=== PATIENT | male | born 1985 | race American Indian/Alaskan Native ===

== ENCOUNTER 2017-01-15 13:07 | Emergency (ER) | payer SELFPAY ==
[2017-01-15] MEDS ORDERED: MOTRIN PO ONE (14:24)
--- NOTE | 2017-01-15 14:35 | Emergency Department Report ---
- General Chief Complaint: Upper Respiratory Infection Stated Complaint: NAUSEA/VOMITING Time Seen by Provider: 01/15/17 14:28 Source: patient Mode of arrival: Ambulatory Limitations: No Limitations - History of Present Illness Initial Comments: 31-year-old male past medical history none presents with complaint of 5-6 days of runny nose sore throat and nonproductive cough and subjective fevers. Patient states that his son had strep earlier last week. Patient is awake alert and oriented 3 states he feels slightly nauseous as he has been coughing which has made him nauseous. Denies any rash denies any earache. States his throat feels somewhat sore. MD Complaint: fever, cough, sore throat Severity: moderate Severity scale (0 -10): 5 Quality: aching Consistency: constant Associated Symptoms: fever, rhinorrhea, cough, nausea - Related Data Previous Rx's Medication Instructions Recorded Last Taken Type Acetaminophen 500 mg PO Q6H PRN #30 tablet 01/15/17 Unknown Rx Bismuth Subsalicylate 10 ml PO QID PRN #1 bottle 01/15/17 Unknown Rx [Pepto-Bismol] Dextromethorphan/Benzocaine 1 each PO Q4H PRN #1 box 01/15/17 Unknown Rx [Cepacol Sorethroat-Cough Helen] Ondansetron [Zofran Odt] 4 mg PO Q8H PRN #12 tab.rapdis 01/15/17 Unknown Rx Allergies Allergy/AdvReac Type Severity Reaction Status Date / Time No Known Allergies Allergy Unverified 01/15/17 14:21 ED Review of Systems ROS: Stated complaint: NAUSEA/VOMITING Other details as noted in HPI Constitutional: fever, malaise. denies: chills Eyes: denies: eye pain, eye discharge, vision change ENT: denies: ear pain, throat pain Respiratory: denies: cough, shortness of breath, wheezing Cardiovascular: denies: chest pain, palpitations Endocrine: no symptoms reported Gastrointestinal: nausea. denies: abdominal pain, diarrhea Genitourinary: denies: urgency, dysuria Musculoskeletal: denies: back pain, joint swelling, arthralgia Skin: denies: rash, lesions Neurological: denies: headache, weakness, paresthesias Psychiatric: denies: anxiety, depression Hematological/Lymphatic: denies: easy bleeding, easy bruising ED Past Medical Hx - Past Medical History Previous Medical History?: No - Surgical History Past Surgical History?: No - Social History Smoking Status: Current Every Day Smoker Substance Use Type: Alcohol - Medications Home Medications: Home Medications Medication Instructions Recorded Confirmed Last Taken Type Acetaminophen 500 mg PO Q6H PRN #30 tablet 01/15/17 Unknown Rx Bismuth Subsalicylate 10 ml PO QID PRN #1 bottle 01/15/17 Unknown Rx [Pepto-Bismol] Dextromethorphan/Benzocaine 1 each PO Q4H PRN #1 box 01/15/17 Unknown Rx [Cepacol Sorethroat-Cough Helen] Ondansetron [Zofran Odt] 4 mg PO Q8H PRN #12 tab.rapdis 01/15/17 Unknown Rx ED Physical Exam - General Limitations: No Limitations General appearance: alert, in no apparent distress - Head Head exam: Present: atraumatic, normocephalic - Eye Eye exam: Present: normal appearance, PERRL, EOMI - ENT ENT exam: Present: mucous membranes moist - Expanded ENT Exam Expanded Throat exam: Positive: tonsillar erythema (bilateral tonsillar erythema) - Neck Neck exam: Present: normal inspection, full ROM - Respiratory Respiratory exam: Present: normal lung sounds bilaterally. Absent: respiratory distress - Cardiovascular Cardiovascular Exam: Present: regular rate, normal rhythm. Absent: systolic murmur, diastolic murmur, rubs, gallop - GI/Abdominal GI/Abdominal exam: Present: soft (abdomen soft nontender nondistended), normal bowel sounds - Rectal Rectal exam: Present: deferred - Extremities Exam Extremities exam: Present: normal inspection - Back Exam Back exam: Present: normal inspection - Neurological Exam Neurological exam: Present: alert, oriented X3 - Psychiatric Psychiatric exam: Present: normal affect, normal mood - Skin Skin exam: Present: warm, dry, intact, normal color. Absent: rash ED Course Vital Signs 01/15/17 01/15/17 01/15/17 14:16 15:40 16:42 Temperature 102.6 F H 102.4 F H 100 F H Pulse Rate 98 H 88 Respiratory 20 14 Rate Blood Pressure 117/72 Blood Pressure 106/55 [Right] O2 Sat by Pulse 99 97 Oximetry ED Medical Decision Making - Medical Decision Making A/P: 1- 2- 3- 4- Critical care attestation.: If time is entered above; I have spent that time in minutes in the direct care of this critically ill patient, excluding procedure time. ED Disposition Clinical Impression: Viral syndrome Disposition: DC-01 TO HOME OR SELFCARE Is pt being admited?: No Does the pt Need Aspirin: No Condition: Stable Instructions: Viral Syndrome (ED), Upper Respiratory Infection (ED), Cold Symptoms (ED) Prescriptions: Acetaminophen 500 mg PO Q6H PRN #30 tablet PRN Reason: Fever Bismuth Subsalicylate [Pepto-Bismol] 10 ml PO QID PRN #1 bottle PRN Reason: Indigestion Dextromethorphan/Benzocaine [Cepacol Sorethroat-Cough Helen] 1 each PO Q4H PRN #1 box PRN Reason: Sore Throat Ondansetron [Zofran Odt] 4 mg PO Q8H PRN #12 tab.rapdis PRN Reason: Nausea Referrals: [facility] [Outside] - 3-5 Days [facility] [Provider Group] - 3-5 Days Forms: Work/School Release Form(ED) Time of Disposition: 17:54
[2017-01-15] MEDS ORDERED: ZOFRAN ODT PO ONE (14:42)
[2017-01-15] MEDS ORDERED: DECADRON IM ONE (14:43)
--- NOTE | 2017-01-15 14:56 | XRay Report ---
Chest 2 views: History: Worsening cough. Findings: Normal cardiomediastinal silhouette. Trachea is midline. No consolidation, pneumothorax or pleural effusion. Impression: No acute cardiopulmonary findings.
[2017-01-15] MEDS ORDERED: NACL 0.9% 1000 ML 1,000 ML IV ONE (15:58)
[2017-01-15] MEDS ORDERED: TORADOL IV ONE (15:58)
[2017-01-15 18:05] VITALS: BP 124/73
== END 2017-01-15 18:08 | disposition home or self-care (01) ==
LOC: ED 13:07
DX: B34.9 Viral infection, unspecified (principal); F17.210 Nicotine dependence, cigarettes, uncomplicated
CPT/HCPCS: 71020; 87116; 87430; 96361; 96372; 96374; 99283; J1100; J1885; J7030; Q0162